=== PATIENT | male | born 1940 | race Caucasian/White ===

== ENCOUNTER → 2018-05-19 | Outpatient (CLI) | payer MEDICARE ==
[2018-05-19 10:10] LABS: HCT 38.3 % (39.0-53.0); HGB 12.4 gm/dL (13.0-17.5); MCH 30.2 pg (25.0-35.0); MCHC 32.4 g/dL (31.0-37.0); MCV 93.2 fL (80.0-100.0); Mean Platelet Volume 6.7; Platelet Count 360 k/uL (150-450); RBC 4.11 m/uL (4.30-5.90); RDW 14.1 % (11.5-15.5); WBC 11.6 k/uL (3.8-10.6)
[2018-05-19 16:24] LABS: Albumin 4.3 g/dL (3.80-4.90); Albumin/Globulin Ratio 1.65 (1.20-2.10); Calcium 9.7 mg/dL (8.7-10.3); Globulin 2.6 g/dL (2.1-3.7); Potassium 4.4 mmol/L (3.5-5.5); Total Bilirubin 0.3 mg/dL (0.3-1.2); Total Protein 6.9 g/dL (6.2-8.2)
== END | disposition home or self-care (01) ==
LOC: LABWHC1 08:35
PROVIDERS: ATTEND Thoracic Surgery (Cardiothoracic Vascular Surgery)
DX: E63.8 Other specified nutritional deficiencies (principal)
CPT/HCPCS: 36415; 80053; 84134; 85027

== ENCOUNTER 2023-09-28 03:42 | Emergency (ER) | payer MEDICARE ==
[2023-09-28 03:57] VITALS: TEMP 99
[2023-09-28] MEDS: SODIUM CHLORIDE 0.9% 1,000 ML IV STA (04:28)
[2023-09-28 04:29] LABS: HCT 45.5 % (39.0-53.0); HGB 14.1 gm/dL (13.0-17.5); Hypochromasia Slight; MCV 96.9 fL (80.0-100.0); Mean Platelet Volume 9.2; Platelet Count 162 k/uL (150-450); RDW 14.2 % (11.5-15.5); WBC 12.5 k/uL (3.8-10.6)
--- NOTE | 2023-09-28 04:50 | XR ---
EXAM: XR Chest, 2 Views CLINICAL HISTORY: ITS.REASON XR Reason: pain TECHNIQUE: Frontal and lateral views of the chest. COMPARISON: 05/03/2018 FINDINGS: Lungs: Unremarkable. No consolidations. Pleural space: Unremarkable. No pneumothorax. Heart: Unremarkable. No cardiomegaly. Mediastinum: Unremarkable. Normal mediastinal contour. Bones/joints: Unremarkable. No acute fracture. IMPRESSION: No acute pulmonary process.
[2023-09-28 05:04] LABS: ALT 12 U/L (4-49); AST 20 U/L (17-59); African American GFR (CKD) >90 (>60 ml/min/1.73 sqM); Albumin 2.3 g/dL (3.5-5.0); Alkaline Phosphatase 61 U/L (38-126); Anion Gap 4 mmol/L; Blood Urea Nitrogen 19 mg/dL (9-20); Carbon Dioxide 17 mmol/L (22-30); Chloride 122 mmol/L (98-107); Glucose 90 mg/dL (74-99); Non-African American GFR(CKD) >90 (>60 ml/min/1.73 sqM); Potassium 3.1 mmol/L (3.5-5.1); Sodium 143 mmol/L (137-145); Total Bilirubin 0.3 mg/dL (0.2-1.3); Total Protein 4.6 g/dL (6.3-8.2)
[2023-09-28] MEDS: ACETAMINOPHEN IV (For NPO) 1,000 MG in EMPTY BAG 1 BAG IVPB STA (05:17)
[2023-09-28 05:18] LABS: Band Neutrophils % 31 %; Eosinophils # (M) 0.13 k/uL (0-0.7); Lymphocytes # (M) 0.38 k/uL (1.0-4.8); Monocytes # (M) 0.63 k/uL (0-1.0); Neutrophils % (M) 60 %; Nucleated Red Blood Cells 0 /100 WBC (0-0); Total Cells Counted 200
[2023-09-28 05:19] LABS: Toxic Granulation Present
[2023-09-28 05:27] LABS: Calcium 5.6 mg/dL (8.4-10.2)
[2023-09-28] MEDS: IPRATROPIUM-ALBUTEROL 3 ML NEB INHALATION STA (05:30)
--- NOTE | 2023-09-28 06:58 | ED ---
Nausea/Vomiting/Diarrhea HPI - General Source: EMS Mode of arrival: EMS <Sammi Quintero - Last Filed: 09/28/23 07:03> <Clement Colby - Last Filed: 09/28/23 10:45> - General Chief complaint: Nausea/Vomiting/Diarrhea Stated complaint: weakness Time Seen by Provider: 09/28/23 03:50 - History of Present Illness Initial comments: 83-year-old male with past medical history of dementia, brain bleed, craniotomy who presents emergency department from [facility]. Patient is sent in by staff for flulike symptoms. They state that the patient has had nausea, vomiting and diarrhea with a cough. Patient cannot provide much history. No reported fevers. (Sammi Quintero) - Related Data Home Medications Medication Instructions Recorded Confirmed QUEtiapine [SEROquel] 1 tab PO HS 03/27/15 09/24/18 Sertraline [Zoloft] 1 tab PO DAILY 03/27/15 09/24/18 Acetaminophen Tab [Tylenol] 650 mg PO Q6HR PRN 05/03/18 09/24/18 Docusate [Colace] 100 mg PO DAILY 05/03/18 09/24/18 Famotidine [Pepcid] 20 mg PO Q12HR 05/03/18 09/24/18 L.acidoph,Paracasei, B.lactis 1 cap PO DAILY 05/03/18 09/24/18 [Probiotic] Loperamide HCl [Imodium A-D] 2 mg PO DIRECTED 05/03/18 09/24/18 Metoprolol Succinate (ER) [Toprol 25 mg PO DAILY 05/03/18 09/24/18 XL] Previous Rx's Medication Instructions Recorded Donepezil [Aricept] 10 mg PO HS #0 05/06/18 Cefpodoxime Proxetil [Vantin] 200 mg PO Q12HR 10 Days #20 tab 09/28/23 Allergies Allergy/AdvReac Type Severity Reaction Status Date / Time No Known Allergies Allergy Verified 09/28/23 03:50 Review of Systems ROS Other: All systems not noted in ROS Statement are negative. <Sammi Quintero - Last Filed: 09/28/23 07:03> ROS Other: All systems not noted in ROS Statement are negative. <Clement Colby - Last Filed: 09/28/23 10:45> ROS Statement: Those systems with pertinent positive or pertinent negative responses have been documented in the HPI. Past Medical History Past Medical History: CVA/TIA, Dementia, Hypertension Additional Past Medical History / Comment(s): brain bleed,head wound History of Any Multi-Drug Resistant Organisms: None Reported Additional Past Surgical History / Comment(s): craniotomy Past Anesthesia/Blood Transfusion Reactions: No Reported Reaction Past Psychological History: Unable to Obtain Past Alcohol Use History: None Reported Past Drug Use History: None Reported - Past Family History Father Family Medical History: CVA/TIA <Sammi Quintero - Last Filed: 09/28/23 07:03> General Exam Limitations: altered mental status, physical limitation General appearance: alert, lethargic Head exam: Present: other (Cranial defect right scalp) Eye exam: Present: PERRL, EOMI, conjunctival injection. Absent: scleral icterus, periorbital swelling ENT exam: Present: mucous membranes dry Neck exam: Present: normal inspection. Absent: tenderness, meningismus, lymphadenopathy Respiratory exam: Present: normal lung sounds bilaterally. Absent: respiratory distress, wheezes, rales, rhonchi, stridor Cardiovascular Exam: Present: regular rate, normal rhythm, normal heart sounds. Absent: systolic murmur, diastolic murmur, rubs, gallop, clicks Extremities exam: Present: normal inspection, full ROM, normal capillary refill. Absent: tenderness, pedal edema, joint swelling, calf tenderness Neurological exam: Present: altered Psychiatric exam: Present: flat affect <Sammi Quintero Oscar - Last Filed: 09/28/23 07:03> Course Vital Signs 09/28/23 09/28/23 09/28/23 03:43 05:22 05:30 Temperature 99.0 F Pulse Rate 79 79 79 Respiratory 16 17 Rate Blood Pressure 125/56 140/70 O2 Sat by Pulse 95 95 Oximetry 09/28/23 09/28/23 09/28/23 05:39 07:23 09:51 Temperature Pulse Rate 82 87 91 Respiratory 18 18 Rate Blood Pressure 126/56 118/52 O2 Sat by Pulse 94 L 95 Oximetry 09/28/23 10:18 Temperature Pulse Rate 74 Respiratory 16 Rate Blood Pressure 109/44 O2 Sat by Pulse 95 Oximetry Medical Decision Making - Lab Data Result diagrams: 09/28/23 04:14 09/28/23 04:30 <IngridSammi Oscar - Last Filed: 09/28/23 07:03> - Lab Data Result diagrams: 09/28/23 04:14 09/28/23 04:30 <LashaClement Jasmina - Last Filed: 09/28/23 10:45> - Medical Decision Making Was pt. sent in by a medical professional or institution (, TAYLA, ROUTE DELIVERY CLERK, urgent care, hospital, or long-term...) When possible be specific @ -[No] Did you speak to anyone other than the patient for history (EMS, parent, family, police, friend...)? What history was obtained from this source @ -[No] Did you review nursing and triage notes (agree or disagree)? Why? @ -[I reviewed and agree with nursing and triage notes] Were old charts reviewed (outside hosp., previous admission, EMS record, old EKG, old radiological studies, urgent care reports/EKG's, long-term records)? Report findings @ -[No old charts were reviewed] Differential Diagnosis (chest pain, altered mental status, abdominal pain women, abdominal pain men, vaginal bleeding, weakness, fever, dyspnea, syncope, headache, dizziness, GI bleed, back pain, seizure, CVA, palpatations, mental health, musculoskeletal)? @ -[not applicable] EKG interpreted by me (3pts min.). @ -[As above] X-rays interpreted by me (1pt min.). @ -[None done] CT interpreted by me (1pt min.). @ -[None done] U/S interpreted by me (1pt. min.). @ -[None done] What testing was considered but not performed or refused? (CT, X-rays, U/S, labs)? Why? @ -[None] What meds were considered but not given or refused? Why? @ -[None] Did you discuss the management of the patient with other professionals (professionals i.e. TAYLA Garvey, ROUTE DELIVERY CLERK, lab, RT, psych nurse, social group worker, headwaiter/headwaitress, teacher, workplace rehabilitation officer, oil field caser)? Give summary @ -[No] Was smoking cessation discussed for >3mins.? @ -[No] Was critical care preformed (if so, how long)? @ -[No] Were there social determinants of health that impacted care today? How? (Homelessness, low income, unemployed, alcoholism, drug addiction, transportation, low edu. Level, literacy, decrease access to med. care, care home, rehab)? @ -[No] Was there de-escalation of care discussed even if they declined (Discuss DNR or withdrawal of care, Hospice)? DNR status @ -[No] What co-morbidities impacted this encounter? (DM, HTN, Smoking, COPD, CAD, Cancer, CVA, ARF, Chemo, Hep., AIDS, mental health diagnosis, sleep apnea, morbid obesity)? @ -[None] Was patient admitted / discharged? Hospital course, mention meds given and route, prescriptions, significant lab abnormalities, going to OR and other pertinent info. @ -Upon arrival patient was placed into room 10. Thorough history and physical exam was performed. IV access was established. Laboratory studies were conducted. Patient given Zofran and Tylenol. CT is performed and pending at this time. Patient will be signed out to Dr. Colby. Undiagnosed new problem with uncertain prognosis? @ -[No] Drug Therapy requiring intensive monitoring for toxicity (Heparin, Nitro, Insulin, Cardizem)? @ -[No] Were any procedures done? @ -[No] Diagnosis/symptom? @ -[default] Acute, or Chronic, or Acute on Chronic? @ -[default] Uncomplicated (without systemic symptoms) or Complicated (systemic symptoms)? @ -[default] Side effects of treatment? @ -[No] Exacerbation, Progression, or Severe Exacerbation? @ -[No] Poses a threat to life or bodily function? How? (Chest pain, USA, VT, pneumonia, PE, COPD, DKA, ARF, appy, cholecystitis, CVA, Diverticulitis, Homicidal, Suicidal, threat to staff... and all critical care pts) @ -[No] (Sammi Quintero) Patient care signed out to me by previous shift physician, Dr. Yeboah. Briefly, patient is 83-year-old male presents from the [facility]. He was brought here to the emergency department for chief complaint of flulike symptoms along with diarrhea. Plan at signout was to follow-up with pending CT imaging. Patient evaluated the bedside. States that he has no significant complaints and feels at baseline. Spoke with the son states that patient sounds to be at baseline. Son did call the snf to figure out what was going on with the patient. Son is currently in [place]. CT imaging was obtained. There was some fluid-filled small bowel loops suspicious for ileus versus gastroenteritis. Patient had some bouts of diarrhea ruling out ileus clinically. There does appear to be a small infiltrate in the posterior lateral right lung base. Son reports that patient has a chronic cough. There does appear to be some thickening at the rectosigmoid junction which is an incidental finding. Disposition options were discussed with patient and son. Patient would like to be discharged. Patient likely suffering from bout of gastroenteritis.Urinalysis obtained showing nitrate positivity with 6 white blood cells and a clean-catch. This is suspicious for urinary tract infection. Patient given dose of ceftriaxone and calcium gluconate. Patient reevaluated again 9:30 AM found to be in stable condition. Disposition options were discussed with patient he wants to be discharged. Patient stable for discharge. Diagnosis/symptom? @ -Gastroenteritis, UTI Acute, or Chronic, or Acute on Chronic? @ -Acute Uncomplicated (without systemic symptoms) or Complicated (systemic symptoms)? @ -Uncomplicated Side effects of treatment? @ -[none] Exacerbation, Progression, or Severe Exacerbation] @ -[no] Poses a threat to life or bodily function? @ -Yes (Clement Colby) - Lab Data Lab Results 09/28/23 09/28/23 09/28/23 Range/Units 04:14 04:14 04:30 WBC 12.5 H (3.8-10.6) k/uL RBC 4.70 (4.30-5.90) m/uL Hgb 14.1 (13.0-17.5) gm/dL Hct 45.5 (39.0-53.0) % MCV 96.9 (80.0-100.0) fL MCH 30.0 (25.0-35.0) pg MCHC 31.0 (31.0-37.0) g/dL RDW 14.2 (11.5-15.5) % Plt Count 162 (150-450) k/uL MPV 9.2 Neutrophils % (Manual) 60 % Band Neuts % (Manual) 31 % Lymphocytes % (Manual) 3 % Monocytes % (Manual) 5 % Eosinophils % (Manual) 1 % Neutrophils # (Manual) 11.30 H (1.3-7.7) k/uL Lymphocytes # (Manual) 0.38 L (1.0-4.8) k/uL Monocytes # (Manual) 0.63 (0-1.0) k/uL Eosinophils # (Manual) 0.13 (0-0.7) k/uL Nucleated RBCs 0 (0-0) /100 WBC Manual Slide Review Performed Toxic Granulation Present Hypochromasia Slight Sodium 143 (137-145) mmol/L Potassium 3.1 L (3.5-5.1) mmol/L Chloride 122 H (98-107) mmol/L Carbon Dioxide 17 L (22-30) mmol/L Anion Gap 4 mmol/L BUN 19 (9-20) mg/dL Creatinine 0.58 L (0.66-1.25) mg/dL Est GFR (CKD-EPI)AfAm >90 (>60 ml/min/1.73 sqM) Est GFR (CKD-EPI)NonAf >90 (>60 ml/min/1.73 sqM) Glucose 90 (74-99) mg/dL Plasma Lactic Acid Emiliano (0.7-2.0) mmol/L Calcium 5.6 L* (8.4-10.2) mg/dL Ionized Calcium Evie (4.5-5.3) mg/dL Total Bilirubin 0.3 (0.2-1.3) mg/dL AST 20 (17-59) U/L ALT 12 (4-49) U/L Alkaline Phosphatase 61 (38-126) U/L Total Protein 4.6 L (6.3-8.2) g/dL Albumin 2.3 L (3.5-5.0) g/dL Urine Color Urine Appearance (Clear) Urine pH (5.0-8.0) Ur Specific [place] (1.001-1.035) Urine Protein (Negative) Urine Glucose (UA) (Negative) Urine Ketones (Negative) Urine Blood (Negative) Urine Nitrite (Negative) Urine Bilirubin (Negative) Urine Urobilinogen (<2.0) mg/dL Ur Leukocyte Esterase (Negative) Urine RBC (0-5) /hpf Urine WBC (0-5) /hpf Ur Squamous Epith Cells (0-4) /hpf Urine Bacteria (None) /hpf Urine Mucus (None) /hpf Influenza Type A (PCR) Not Detected (Not Detectd) Influenza Type B (PCR) Not Detected (Not Detectd) RSV (PCR) Not Detected (Not Detectd) SARS-CoV-2 (PCR) Not Detected (Not Detectd) 09/28/23 09/28/23 09/28/23 Range/Units 06:37 06:37 08:20 WBC (3.8-10.6) k/uL RBC (4.30-5.90) m/uL Hgb (13.0-17.5) gm/dL Hct (39.0-53.0) % MCV (80.0-100.0) fL MCH (25.0-35.0) pg MCHC (31.0-37.0) g/dL RDW (11.5-15.5) % Plt Count (150-450) k/uL MPV Neutrophils % (Manual) % Band Neuts % (Manual) % Lymphocytes % (Manual) % Monocytes % (Manual) % Eosinophils % (Manual) % Neutrophils # (Manual) (1.3-7.7) k/uL Lymphocytes # (Manual) (1.0-4.8) k/uL Monocytes # (Manual) (0-1.0) k/uL Eosinophils # (Manual) (0-0.7) k/uL Nucleated RBCs (0-0) /100 WBC Manual Slide Review Toxic Granulation Hypochromasia Sodium (137-145) mmol/L Potassium (3.5-5.1) mmol/L Chloride (98-107) mmol/L Carbon Dioxide (22-30) mmol/L Anion Gap mmol/L BUN (9-20) mg/dL Creatinine (0.66-1.25) mg/dL Est GFR (CKD-EPI)AfAm (>60 ml/min/1.73 sqM) Est GFR (CKD-EPI)NonAf (>60 ml/min/1.73 sqM) Glucose (74-99) mg/dL Plasma Lactic Acid Emiliano 1.6 (0.7-2.0) mmol/L Calcium (8.4-10.2) mg/dL Ionized Calcium Evie 4.2 L (4.5-5.3) mg/dL Total Bilirubin (0.2-1.3) mg/dL AST (17-59) U/L ALT (4-49) U/L Alkaline Phosphatase (38-126) U/L Total Protein (6.3-8.2) g/dL Albumin (3.5-5.0) g/dL Urine Color Yellow Urine Appearance Clear (Clear) Urine pH 5.5 (5.0-8.0) Ur Specific [place] 1.050 H (1.001-1.035) Urine Protein Trace H (Negative) Urine Glucose (UA) Negative (Negative) Urine Ketones Negative (Negative) Urine Blood Small H (Negative) Urine Nitrite Positive (Negative) Urine Bilirubin Negative (Negative) Urine Urobilinogen <2.0 (<2.0) mg/dL Ur Leukocyte Esterase Small H (Negative) Urine RBC 4 (0-5) /hpf Urine WBC 6 H (0-5) /hpf Ur Squamous Epith Cells 2 (0-4) /hpf Urine Bacteria Moderate H (None) /hpf Urine Mucus Rare H (None) /hpf Influenza Type A (PCR) (Not Detectd) Influenza Type B (PCR) (Not Detectd) RSV (PCR) (Not Detectd) SARS-CoV-2 (PCR) (Not Detectd) Disposition <Sammi Quintero A - Last Filed: 09/28/23 07:03> Is patient prescribed a controlled substance at d/c from ED?: No Time of Disposition: 09:28 <Clement Colby - Last Filed: 09/28/23 10:45> Clinical Impression: UTI (urinary tract infection), Gastroenteritis Disposition: HOME SELF-CARE Condition: Fair Instructions (If sedation given, give patient instructions): Urinary Tract Infection in Men (ED), Acute Diarrhea (ED) Prescriptions: Cefpodoxime Proxetil [Vantin] 200 mg PO Q12HR 10 Days #20 tab Referrals: Mark Harris MD [Primary Care Provider] - 1-2 days
[2023-09-28] MEDS: ONDANSETRON 4 MG/2 ML VIAL IVP STA (07:31)
--- NOTE | 2023-09-28 07:33 | CT ---
EXAMINATION TYPE: CT abdomen pelvis w con DATE OF EXAM: 09/28/2023 COMPARISON: None INDICATION: vomiting DLP: 1522.2 mGycm, Automated exposure control for dose reduction was used. CONTRAST: 100 mL of Isovue 300. Study performed without Oral Contrast TECHNIQUE: Axial images were obtained from above the diaphragm to the pubic rami in the axial plane a t 5 mm thick sections. Reconstructed images are reviewed on the computer in the coronal plane. FINDINGS: Limited CT sections are obtained the lung bases. There is some infiltrate in the posterior right ramon g base, correlate for atelectasis or pneumonia. Coronary artery calcification is present. CT ABDOMEN: Liver: Normal Spleen: Normal Pancreas: Normal Adrenal glands: The adrenal glands are normal. Gallbladder: Cholelithiasis present. Kidneys: No masses are evident. No hydronephrosis is present. There is a 4.3 cm cyst posterior late ral left upper lobe pole. Medial wall cyst is present measuring 1.5 cm. There may be a peripelvic cys t superior measuring 1.5 cm. Smaller cortical renal cysts are within the mid and lower pole left kidn ey. There is a 5.7 cm cyst at the inferior pole right kidney. Small cortical renal cysts are present mid and upper pole right kidney. Delayed images were obtained through the kidneys, which remain unrem arkable. Aorta: Vascular calcification is within the aorta. Inferior vena cava: Normal. CT PELVIS: Small bowel loops are prominent and fluid-filled. There is suggestion of prior bowel surgery. No zone of transition is evident. Correlate for ileus. Fluid is also within the colon which is nondilated. T here may be some thickening through the rectosigmoid region. Follow-up is recommended Appendix: Not identified. No dilated tubular structures or inflammatory changes evident. Urinary bladder: Normal. Genitourinary structures: Status normal. Osseous structures: No suspicious lytic or sclerotic lesions. IMPRESSION: 1. Fluid-filled small bowel loops. No zone of transition is evident. Surgical anastomosis appears wi leesa patent. Ileus favored within the differential. Consider gastroenteritis. 2. Multiple bilateral renal cysts. 3. Small infiltrate posterior lateral right lung base.: Atelectasis and pneumonia. Follow-up can be p erformed. Mass is not excluded. 4. Diffuse thickening through the rectosigmoid region. Follow-up is recommended
[2023-09-28 08:47] LABS: Appearance,Urine Clear (Clear); Bacteria,Urine Moderate /hpf; Bilirubin,Urine Negative (Negative); Blood,Urine Small (Negative); Color,Urine Yellow; Glucose,Urine (UA) Negative (Negative); Ketones,Urine Negative (Negative); Leukocyte Esterase,Urine Small (Negative); Mucus,Urine Rare /hpf; Nitrite,Urine Positive (Negative); PH, Urine 5.5 (5.0-8.0); Protein,Urine Trace (Negative); RBC,Urine 4 /hpf (0-5); Squamous Epithelial Cell,Urine 2 /hpf (0-4); Urobilinogen,Urine <2.0 mg/dL (<2.0); WBC,Urine 6 /hpf (0-5)
[2023-09-28] MEDS: cefTRIAXone IN SWFI 1,000 MG/10 ML SYRINGE IVP STA (09:53)
[2023-09-28] MEDS: CALCIUM GLUCONATE IN NACL 1 GM in SALINE 1 100ML.BAG IVPB ONE (09:55)
[2023-09-28 10:52] VITALS: BP 109/44; PULSE 74; RESP 16
== END 2023-09-28 12:10 | disposition home or self-care (01) ==
LOC: EC 03:42
DX: K52.9 Noninfective gastroenteritis and colitis, unspecified (principal); N39.0 Urinary tract infection, site not specified; R91.8 Other nonspecific abnormal finding of lung field; R05.3 Chronic cough; Z86.73 Personal history of transient ischemic attack (TIA), and cerebral infarction without residual deficits
CPT/HCPCS: 36415; 94640; 80053; 82330; 83605; 85025; 81001; 87636; 71046; 74177; 99285; 96365; 96375 ×3; 96361; J2405; J0696; J0131; Q9967; J0613

== ENCOUNTER 2024-02-04 17:11 | Emergency (ER) | payer MEDICARE ==
[2024-02-04] MEDS ORDERED: PROPARACAINE 0.5% OPHTH DROPS 15 ML BTL ONE (21:06)
[2024-02-04] MEDS ORDERED: FLUORESCEIN STRIPS 1 MG STRIP ONE (21:06)
== END 2024-02-04 23:10 | disposition home or self-care (01) ==
LOC: EC 17:11
DX: H57.89 Other specified disorders of eye and adnexa (principal)
CPT/HCPCS: 99284

== ENCOUNTER 2024-03-23 00:11 | Inpatient (IN) | payer MEDICARE ==
--- NOTE | 2024-03-23 02:08 | CT ---
EXAMINATION TYPE: CT brain audra alegre DATE OF EXAM: 03/23/2024 COMPARISON: CT brain 2018 HISTORY: pt arrives to ED from [facility] for c/o weakness and fall yesterday from chair. pt is febrile and lethargic. pt's family on their way. pt takes Bi[employer] CT DLP: 1547.2 mGycm. Automated Exposure Control for Dose Reduction was Utilized. TECHNIQUE: CT scan of the head and cervical spine are performed without contrast. FINDINGS: Right frontal parietal craniectomy changes redemonstrated. There is no acute intracranial hemorrhage or midline shift identified. Mild/moderate ventricular and sulcal prominence is redemonst rated. Mild/moderate low attenuation in the periventricular white matter is redemonstrated. Bilateral aphakia again seen. The visualized sinuses are clear. Cervical spine is visualized in its entirety from C1 through upper thoracic levels and demonstrates s coliosis without evidence of acute fracture or dislocation. Prevertebral soft tissue appears within normal limits. The C1-C2 articulation is within normal limits on the coronal images. Vertebral body heights are preserved. Disc space heights are fairly well maintained. Lung apices are clear without pneumothorax. IMPRESSION: 1. There is no acute fracture or dislocation evident in the cervical spine. 2. No acute intracranial hemorrhage or midline shift seen. [facility], , 03/23/2024 2:06 AM
--- NOTE | 2024-03-23 02:18 | CT ---
EXAMINATION TYPE: CT ChestAbdPelvis wo con DATE OF EXAM: 03/23/2024 COMPARISON: NONE HISTORY: pt arrives to ED from [facility] for c/o weakness and fall yesterday from chair. pt is febrile and lethargic. pt's family on their way. pt takes eliOnSwipeis CT DLP: 1112.6 mGycm. Automated Exposure Control for Dose Reduction was Utilized. TECHNIQUE: CT scan of the thorax, abdomen and pelvis is performed without IV contrast. FINDINGS: Within the limitations of a noncontrast study, the following observations are made. LUNGS: There is tiny right pleural effusion. There is focal consolidation/atelectasis posterior right lower lobe. Left lung is grossly clear. MEDIASTINUM: Heart size upper limits of normal. Moderate to severe three-vessel coronary artery calci fication. No significant pericardial effusion. LIVER/GB: Small dependent gallstones and/or gallbladder sludge. PANCREAS: No significant abnormality is seen. SPLEEN: No significant abnormality is seen. ADRENALS: No significant abnormality is seen. KIDNEYS: There are a few simple-appearing thin-walled cysts scattered throughout both kidneys. No hyd ronephrosis seen bilaterally. BOWEL: No abnormal small or large bowel dilatation. GENITAL ORGANS: No gross abnormality seen. LYMPH NODES: No greater than 1cm abdominal or pelvic lymph nodes are appreciated. OSSEOUS STRUCTURES: No significant abnormality is seen. OTHER: No significant additional abnormality is seen. IMPRESSION: 1. Tiny right pleural effusion. Focal consolidation/atelectasis posterior right lower lobe. 2. No significant acute finding in the abdomen and pelvis on noncontrast CT. [facility], , 03/23/2024 2:16 AM
[2024-03-23 02:21] LABS: Glucose,Whole Blood 110 mg/dL (70-110)
[2024-03-23] MEDS: cefTRIAXone IN SWFI 1,000 MG/10 ML SYRINGE IVP STA (02:54)
[2024-03-23] MEDS: AZITHROMYCIN 500 MG in SODIUM CHLORIDE 0.9% 250 ML IVPB STA (02:56)
[2024-03-23] MEDS: SODIUM CHLORIDE 0.9% 1,000 ML IV ONE ×2 (02:57→05:59)
[2024-03-23 04:48] LABS: INR 1.2 (<1.2); Partial Thromboplastin Time 25.3 sec (22.0-30.0); Prothrombin Time 12.5 sec (10.0-12.5)
[2024-03-23 04:51] LABS: Basophils % (A) 0 %; Eosinophils % (A) 0 %; HCT 37.3 % (39.0-53.0); HGB 11.9 gm/dL (13.0-17.5); Hypochromasia Slight; Lymphocytes # (A) 0.6 k/uL (1.0-4.8); Lymphocytes % (A) 6 %; MCH 29.7 pg (25.0-35.0); MCHC 31.8 g/dL (31.0-37.0); MCV 93.6 fL (80.0-100.0); Mean Platelet Volume 7.5; Monocytes # (A) 0.7 k/uL (0-1.0); Monocytes % (A) 6 %; Neutrophils # (A) 9.8 k/uL (1.3-7.7); Neutrophils % (A) 87 %; Platelet Count 139 k/uL (150-450); RBC 3.99 m/uL (4.30-5.90); RDW 13.9 % (11.5-15.5); WBC 11.3 k/uL (3.8-10.6)
[2024-03-23 05:04] LABS: ALT 11 U/L (4-49); AST 24 U/L (17-59); African American GFR (CKD) >90 (>60 ml/min/1.73 sqM); Albumin 3.5 g/dL (3.5-5.0); Alcohol <10 mg/dL; Alkaline Phosphatase 85 U/L (38-126); Anion Gap 5 mmol/L; Blood Urea Nitrogen 18 mg/dL (9-20); Calcium 8.3 mg/dL (8.4-10.2); Carbon Dioxide 22 mmol/L (22-30); Chloride 111 mmol/L (98-107); Glucose 94 mg/dL (74-99); Non-African American GFR(CKD) 79 (>60 ml/min/1.73 sqM); Potassium 4.1 mmol/L (3.5-5.1); Sodium 138 mmol/L (137-145); Total Bilirubin 0.9 mg/dL (0.2-1.3); Total Protein 6.1 g/dL (6.3-8.2)
--- NOTE | 2024-03-23 05:32 | ED ---
General Adult HPI - General Chief complaint: Fall Stated complaint: Fall (Blood Thinners) Time Seen by Provider: 03/23/24 00:46 Source: EMS Mode of arrival: EMS - History of Present Illness Initial comments: Hx limited by patient's dementia. Per EMS report, patient resides at independent living. Suffered a fall yesterday and refused to come to the ED. Today pt began complaining of knee pain so was brought to the ED. Upon further hx gathering from patient's son, confirmed history as above. Patient is currently at baseline mental stauts, AO x2. - Related Data Home Medications Medication Instructions Recorded Confirmed QUEtiapine [SEROquel] 50 mg PO W/SUPPER 03/27/15 03/23/24 Famotidine [Pepcid] 20 mg PO QAM 05/03/18 03/23/24 Metoprolol Succinate (ER) [Toprol 25 mg PO DAILY 05/03/18 03/23/24 XL] Cyanocobalamin (Vitamin B-12) 1,000 mcg PO DAILY 03/23/24 03/23/24 [Vitamin B-12] Levothyroxine Sodium [Synthroid] 25 mcg PO QAM 03/23/24 03/23/24 Rosuvastatin [Crestor] 10 mg PO HS 03/23/24 03/23/24 Sertraline [Zoloft] 100 mg PO DAILY 03/23/24 03/23/24 Previous Rx's Medication Instructions Recorded Acetaminophen Tab [Tylenol] 650 mg PO Q6HR PRN tab 03/26/24 Carbidopa-Levodopa 25-100 mg 1 each PO TID tab 03/26/24 [Sinemet 25-100 mg] Cefuroxime [Ceftin] 250 mg PO BID 3 Days #6 tab 03/26/24 Psyllium Husk 100% [Metamucil 6 gm PO DAILY packet 03/26/24 Packet] bisacodyL [Dulcolax] 5 mg PO DAILY PRN tab 03/26/24 Allergies Allergy/AdvReac Type Severity Reaction Status Date / Time No Known Allergies Allergy Verified 03/23/24 07:44 Review of Systems ROS Statement: Those systems with pertinent positive or pertinent negative responses have been documented in the HPI. ROS Other: All systems not noted in ROS Statement are negative. Limitations: ROS unobtainable due to patients medical condition Past Medical History Past Medical History: CVA/TIA, Dementia, Hypertension Additional Past Medical History / Comment(s): brain bleed,head wound History of Any Multi-Drug Resistant Organisms: None Reported Additional Past Surgical History / Comment(s): craniotomy Past Anesthesia/Blood Transfusion Reactions: No Reported Reaction Past Psychological History: Unable to Obtain Past Alcohol Use History: None Reported Past Drug Use History: None Reported - Past Family History Father Family Medical History: CVA/TIA General Exam - General Exam Comments Initial Comments: PE: CONSTITUTIONAL: No apparent distress, chronically ill appearing SKIN: Warm, dry, no jaundice, hives or petechiae EYES: Pupils are equally round, extraocular movements intact without nystagmus, clear conjunctiva, non-icteric sclera HENT: Normocephalic, small 1 cm abrasion to posterior occiput, dry mucus membranes, oropharynx clear without exudates NECK: , Full range of motion, normal appearance PULMONARY: Clear to auscultation without wheezes, rhonchi, or rales, normal excursion, no accessory muscle use and no stridor CARDIOVASCULAR: Regular rate, rhythm, normal S1 and S2. No appreciated murmurs, rubs or gallops. Strong radial pulses with intact distal perfusion. No lower extremity edema GASTROINTESTINAL: Soft, active bowel sounds throughout, non-tender, non- distended, no palpable masses, no rebound or guarding. No hepatosplenomegaly MUSCULOSKELETAL: Extremities have no gross deformity, no edema, redness, or swelling. No calf swelling NEUROLOGIC:_a/o x 2, GCS 13, somewhat confused, mentation and speech, does an swer some yes or no questions, knows self, and that he is in the hospital, denies complaints of pain when asked. Moves all extremities x 4 without motor or sensory deficit PSYCHIATRIC:_calm and coopreative, difficult to assess further 2/2 hx of 2/2 hx parkinson's and dementia Course Vital Signs 03/23/24 03/23/24 03/23/24 00:22 03:00 04:00 Temperature 98.4 F Pulse Rate 64 67 68 Respiratory 16 16 18 Rate Blood Pressure 107/47 102/61 102/59 O2 Sat by Pulse 98 99 97 Oximetry 03/23/24 03/23/24 03/23/24 05:00 05:30 06:00 Temperature Pulse Rate 60 58 L 60 Respiratory 16 16 18 Rate Blood Pressure 92/40 97/41 100/42 O2 Sat by Pulse 97 98 98 Oximetry 03/23/24 03/23/24 03/23/24 07:38 08:30 08:45 Temperature 97.9 F Pulse Rate 66 60 Respiratory 18 18 Rate Blood Pressure 97/50 80/63 O2 Sat by Pulse 95 96 98 Oximetry 03/23/24 09:12 Temperature Pulse Rate 60 Respiratory 16 Rate Blood Pressure 103/59 O2 Sat by Pulse 99 Oximetry EKG Findings - EKG Comments: EKG Findings:: Paced atrial rhythm, rate 68 bpm, [place] interval 180 ms, QRS duration 91 ms, QT/QTc 409/427 ms, normal axis, no ST elevations or depressions, artifact present throughout Medical Decision Making - Medical Decision Making Was pt. sent in by a medical professional or institution (, PA, INVENTORY SPECIALIST, urgent care, hospital, or residential...) When possible be specific @ -No Did you speak to anyone other than the patient for history (EMS, parent, family, police, friend...)? What history was obtained from this source @ Spoke with patient's son for additional hx Did you review nursing and triage notes (agree or disagree)? Why? @ -I reviewed and agree with nursing and triage notes Were old charts reviewed (outside hosp., previous admission, EMS record, old EKG, old radiological studies, urgent care reports/EKG's, residential records)? Report findings @ Old charts reviewed Differential Diagnosis (chest pain, altered mental status, abdominal pain women, abdominal pain men, vaginal bleeding, weakness, fever, dyspnea, syncope, headache, dizziness, GI bleed, back pain, seizure, CVA, palpatations, mental health, musculoskeletal)? @ -Differential diagnosis remains broad however top considerations include fall/ weakness 2/2 deconditioning, fracture, anemia, electrolyte abnormality, ACS; this is not all inclusive list EKG interpreted by me (3pts min.). @ -As above X-rays interpreted by me (1pt min.). @ No evidence of fracture or dislocation on XR RLE CT interpreted by me (1pt min.). @ -NO evidence of hemorrhage on CT brain, no malalignment or fracture on C spine, no evidence of hemorrhage or fracture on CT chest abdomen pelvis U/S interpreted by me (1pt. min.). @ -None done What testing was considered but not performed or refused? (CT, X-rays, U/S, labs)? Why? @ -None What meds were considered but not given or refused? Why? @ -None Did you discuss the management of the patient with other professionals (professionals i.e. , PA, INVENTORY SPECIALIST, lab, RT, psych nurse, social media content specialist, project superintendent, teacher, marketing officer, ed case manager)? Give summary @ -No Was smoking cessation discussed for >3mins.? @ -No Was critical care preformed (if so, how long)? @ -No Were there social determinants of health that impacted care today? How? (Homelessness, low income, unemployed, alcoholism, drug addiction, transportation, low edu. Level, literacy, decrease access to med. care, alf, rehab)? @ -No Was there de-escalation of care discussed even if they declined (Discuss DNR or withdrawal of care, Hospice)? @ -No What co-morbidities impacted this encounter? (DM, HTN, Smoking, COPD, CAD, Cancer, CVA, ARF, Chemo, Hep., AIDS, mental health diagnosis, sleep apnea, morbid obesity)? @ Dementia, HTN parkinsons Was patient admitted / discharged? Hospital course, mention meds given and route, prescriptions, significant lab abnormalities, going to OR and other pert inent info. @ -Hospital course admission Pt is an 84 y/o male, PMH Dementia, HTN, parkinsons, prior CVA presenting for evaluation post fall. Hx is limited as patient unable to provide hx and no famil y accompanies patient. Pt denies any pain currently and on my assessment, is ill appearing but in NAD. MM dry, small laceration at the posterior left occiput, no midline C spine TTP, extremities are atraumatic, no TTP of any of the extremities., no signs of trauma to the chest wall or abdomen. Patient able to move all 4 extremities through full ROM. LCTAB, soft and nontender abdomen, normal S1/2 on cardiac exam. Pt knows he is in the hospital and is oriented to self. Plan for Ct brain/ Cspine, C/A/P to ensure no signs blunt trauma and assess for potential signs of infection that would explain weakness as patient was reported to be febrile at transferring facility, though afebrile here. Comp rehensive labs, IV fluids. I was able to discuss with patient's son further hx. He states pt fell 2 days ago at his independent living facility. He was able to call for help and caregiver's got him up off of the floor. This evening he was unable to stand, even with assistance, and complained of right knee pain. Pt's facility is unable to provide lift assists/ care for patient if he needs assistance with ambulation. Son states patient is at his mental baseline, states that he does have dementia and he is "very difficult to communicate with" and it is normal for him to only be oriented to self and place. Pt's son states that he himself is sick with influenza and visited the patient a few days ago. On reassessment, I did reexamine patient's right knee. It is nontender to palpation, no bruising or gross deformity, however will add on plain films of the affected extremity. Anticipate admission for placement as, per patient's son patient's current facility is unable to care for him based on his current mobility issues. Labs and imaging reviewed. Significant for white blood cell count 11.3, patient was previously here on 9 on 09/28/2023 and it was 12.5, hemoglobin 11.9, although this is down about 2.2 points from prior on 09/28/2023 I see no evidence of of active bleeding on my assessment or on imaging, Labs and imaging reviewed. Grossly within normal limits. Abnormal values not concerning for acute pathology related to presenting complaint., Significant for white blood cell count 11.3, patient was previously here on 9 on 09/28/2023 and it was 12.5 hemoglobin 11.9, although this is down about 2.2 points from prior on 09/28/2023 no new so I see no evidence of of active bleeding on my assessment on imaging. lactic 0.9. Troponin within normal limit 0.013; urinalysis significant for trace protein, 1+ ketones, small amount of blood large leukocyte esterase 20 white blood cell, WBC clumps, less than 1 squamous cell, rare bacteria few budding yeast. CT abdomen pelvis significant for tiny right pleural effusion with a focus of consolidation or atelectasis in the posterior right lower lobe otherwise no significant acute findings. Patient on home oxygen and afebrile here, however does have leukocytosis. Rocephin and azithromycin has been ordered. I did personally review plain films and see no evidence of fracture. Discussed case with Dr. Hester, [facility] physicians, who kindly accepts patient for admission. Pt admitted in stable condition. Undiagnosed new problem with uncertain prognosis? @ -No Drug Therapy requiring intensive monitoring for toxicity (Heparin, Nitro, Insulin, Cardizem)? @ -No Were any procedures done? @ -No Diagnosis/symptom? @ Generalized weakness, multiple falls, pneumonia, urinary tract infection Acute, or Chronic, or Acute on Chronic? @ Acute Uncomplicated (without systemic symptoms) or Complicated (systemic symptoms)? @complicated Side effects of treatment? @ -No Exacerbation, Progression, or Severe Exacerbation? @ -No Poses a threat to life or bodily function? How? (Chest pain, USA, AR, pneumonia, PE, COPD, DKA, ARF, appy, cholecystitis, CVA, Diverticulitis, Homicidal, Suicidal, threat to staff... and all critical care pts) @Potentially, if left untreated could lead to sepsis and septic shock - Lab Data Result diagrams: 03/26/24 05:20 03/26/24 05:20 Lab Results 03/23/24 03/23/24 03/23/24 Range/Units 02:13 04:15 04:15 WBC 11.3 H (3.8-10.6) k/uL RBC 3.99 L (4.30-5.90) m/uL Hgb 11.9 L (13.0-17.5) gm/dL Hct 37.3 L (39.0-53.0) % MCV 93.6 (80.0-100.0) fL MCH 29.7 (25.0-35.0) pg MCHC 31.8 (31.0-37.0) g/dL RDW 13.9 (11.5-15.5) % Plt Count 139 L (150-450) k/uL MPV 7.5 Neutrophils % 87 % Lymphocytes % 6 % Monocytes % 6 % Eosinophils % 0 % Basophils % 0 % Neutrophils # 9.8 H (1.3-7.7) k/uL Lymphocytes # 0.6 L (1.0-4.8) k/uL Monocytes # 0.7 (0-1.0) k/uL Eosinophils # 0.0 (0-0.7) k/uL Basophils # 0.0 (0-0.2) k/uL Hypochromasia Slight PT 12.5 (10.0-12.5) sec INR 1.2 H (<1.2) APTT 25.3 (22.0-30.0) sec Sodium (137-145) mmol/L Potassium (3.5-5.1) mmol/L Chloride (98-107) mmol/L Carbon Dioxide (22-30) mmol/L Anion Gap mmol/L BUN (9-20) mg/dL Creatinine (0.66-1.25) mg/dL Est GFR (CKD-EPI)AfAm (>60 ml/min/1.73 sqM) Est GFR (CKD-EPI)NonAf (>60 ml/min/1.73 sqM) Glucose (74-99) mg/dL POC Glucose (mg/dL) 110 (70-110) mg/dL POC Glu Program Director/Traffic Director ID Boswell, Jenae Plasma Lactic Acid Emiliano (0.7-2.0) mmol/L Calcium (8.4-10.2) mg/dL Total Bilirubin (0.2-1.3) mg/dL AST (17-59) U/L ALT (4-49) U/L Alkaline Phosphatase (38-126) U/L Ammonia (<30) umol/L Troponin I (0.000-0.034) ng/mL Total Protein (6.3-8.2) g/dL Albumin (3.5-5.0) g/dL TSH (0.465-4.680) mIU/L Urine Color Urine Appearance (Clear) Urine pH (5.0-8.0) Ur Specific Egan (1.001-1.035) Urine Protein (Negative) Urine Glucose (UA) (Negative) Urine Ketones (Negative) Urine Blood (Negative) Urine Nitrite (Negative) Urine Bilirubin (Negative) Urine Urobilinogen (<2.0) mg/dL Ur Leukocyte Esterase (Negative) Urine RBC (0-5) /hpf Urine WBC (0-5) /hpf Urine WBC Clumps (None) /hpf Ur Squamous Epith Cells (0-4) /hpf Urine Bacteria (None) /hpf Urine Yeast (Budding) (None) /hpf Serum Alcohol mg/dL Influenza Type A (PCR) (Not Detectd) Influenza Type B (PCR) (Not Detectd) RSV (PCR) (Not Detectd) SARS-CoV-2 (PCR) (Not Detectd) 03/23/24 03/23/24 03/23/24 Range/Units 04:15 04:15 04:15 WBC (3.8-10.6) k/uL RBC (4.30-5.90) m/uL Hgb (13.0-17.5) gm/dL Hct (39.0-53.0) % MCV (80.0-100.0) fL MCH (25.0-35.0) pg MCHC (31.0-37.0) g/dL RDW (11.5-15.5) % Plt Count (150-450) k/uL MPV Neutrophils % % Lymphocytes % % Monocytes % % Eosinophils % % Basophils % % Neutrophils # (1.3-7.7) k/uL Lymphocytes # (1.0-4.8) k/uL Monocytes # (0-1.0) k/uL Eosinophils # (0-0.7) k/uL Basophils # (0-0.2) k/uL Hypochromasia PT (10.0-12.5) sec INR (<1.2) APTT (22.0-30.0) sec Sodium 138 (137-145) mmol/L Potassium 4.1 (3.5-5.1) mmol/L Chloride 111 H (98-107) mmol/L Carbon Dioxide 22 (22-30) mmol/L Anion Gap 5 mmol/L BUN 18 (9-20) mg/dL Creatinine 0.84 (0.66-1.25) mg/dL Est GFR (CKD-EPI)AfAm >90 (>60 ml/min/1.73 sqM) Est GFR (CKD-EPI)NonAf 79 (>60 ml/min/1.73 sqM) Glucose 94 (74-99) mg/dL POC Glucose (mg/dL) (70-110) mg/dL POC Glu Program Director/Traffic Director ID Plasma Lactic Acid Emiliano 0.9 (0.7-2.0) mmol/L Calcium 8.3 L (8.4-10.2) mg/dL Total Bilirubin 0.9 (0.2-1.3) mg/dL AST 24 (17-59) U/L ALT 11 (4-49) U/L Alkaline Phosphatase 85 (38-126) U/L Ammonia <9 (<30) umol/L Troponin I 0.013 (0.000-0.034) ng/mL Total Protein 6.1 L (6.3-8.2) g/dL Albumin 3.5 (3.5-5.0) g/dL TSH 3.220 (0.465-4.680) mIU/L Urine Color Urine Appearance (Clear) Urine pH (5.0-8.0) Ur Specific Egan (1.001-1.035) Urine Protein (Negative) Urine Glucose (UA) (Negative) Urine Ketones (Negative) Urine Blood (Negative) Urine Nitrite (Negative) Urine Bilirubin (Negative) Urine Urobilinogen (<2.0) mg/dL Ur Leukocyte Esterase (Negative) Urine RBC (0-5) /hpf Urine WBC (0-5) /hpf Urine WBC Clumps (None) /hpf Ur Squamous Epith Cells (0-4) /hpf Urine Bacteria (None) /hpf Urine Yeast (Budding) (None) /hpf Serum Alcohol <10 mg/dL Influenza Type A (PCR) (Not Detectd) Influenza Type B (PCR) (Not Detectd) RSV (PCR) (Not Detectd) SARS-CoV-2 (PCR) (Not Detectd) 03/23/24 03/23/24 Range/Units 05:55 06:14 WBC (3.8-10.6) k/uL RBC (4.30-5.90) m/uL Hgb (13.0-17.5) gm/dL Hct (39.0-53.0) % MCV (80.0-100.0) fL MCH (25.0-35.0) pg MCHC (31.0-37.0) g/dL RDW (11.5-15.5) % Plt Count (150-450) k/uL MPV Neutrophils % % Lymphocytes % % Monocytes % % Eosinophils % % Basophils % % Neutrophils # (1.3-7.7) k/uL Lymphocytes # (1.0-4.8) k/uL Monocytes # (0-1.0) k/uL Eosinophils # (0-0.7) k/uL Basophils # (0-0.2) k/uL Hypochromasia PT (10.0-12.5) sec INR (<1.2) APTT (22.0-30.0) sec Sodium (137-145) mmol/L Potassium (3.5-5.1) mmol/L Chloride (98-107) mmol/L Carbon Dioxide (22-30) mmol/L Anion Gap mmol/L BUN (9-20) mg/dL Creatinine (0.66-1.25) mg/dL Est GFR (CKD-EPI)AfAm (>60 ml/min/1.73 sqM) Est GFR (CKD-EPI)NonAf (>60 ml/min/1.73 sqM) Glucose (74-99) mg/dL POC Glucose (mg/dL) (70-110) mg/dL POC Glu Program Director/Traffic Director ID Plasma Lactic Acid Emiliano (0.7-2.0) mmol/L Calcium (8.4-10.2) mg/dL Total Bilirubin (0.2-1.3) mg/dL AST (17-59) U/L ALT (4-49) U/L Alkaline Phosphatase (38-126) U/L Ammonia (<30) umol/L Troponin I (0.000-0.034) ng/mL Total Protein (6.3-8.2) g/dL Albumin (3.5-5.0) g/dL TSH (0.465-4.680) mIU/L Urine Color Colorless Urine Appearance Cloudy (Clear) Urine pH 7.5 (5.0-8.0) Ur Specific Egan 1.014 (1.001-1.035) Urine Protein Trace H (Negative) Urine Glucose (UA) Negative (Negative) Urine Ketones 1+ H (Negative) Urine Blood Small H (Negative) Urine Nitrite Negative (Negative) Urine Bilirubin Negative (Negative) Urine Urobilinogen <2.0 (<2.0) mg/dL Ur Leukocyte Esterase Large H (Negative) Urine RBC 1 (0-5) /hpf Urine WBC 20 H (0-5) /hpf Urine WBC Clumps Rare H (None) /hpf Ur Squamous Epith Cells <1 (0-4) /hpf Urine Bacteria Rare H (None) /hpf Urine Yeast (Budding) Few H (None) /hpf Serum Alcohol mg/dL Influenza Type A (PCR) Not Detected (Not Detectd) Influenza Type B (PCR) Not Detected (Not Detectd) RSV (PCR) Not Detected (Not Detectd) SARS-CoV-2 (PCR) Not Detected (Not Detectd) Disposition Clinical Impression: Fall, UTI (urinary tract infection), Generalized weakness, Pneumonia Disposition: ADMITTED IP TO THIS HOSP
[2024-03-23 05:40] LABS: Lactic Acid, Venous 0.9 mmol/L (0.7-2.0)
[2024-03-23 06:14] LABS: Appearance,Urine Cloudy (Clear); Bacteria,Urine Rare /hpf; Bilirubin,Urine Negative (Negative); Blood,Urine Small (Negative); Budding Yeast,Urine Few /hpf; Color,Urine Colorless; Glucose,Urine (UA) Negative (Negative); Ketones,Urine 1+ (Negative); Leukocyte Esterase,Urine Large (Negative); Nitrite,Urine Negative (Negative); PH, Urine 7.5 (5.0-8.0); Protein,Urine Trace (Negative); RBC,Urine 1 /hpf (0-5); Specific Gravity,Urine 1.014 (1.001-1.035); Squamous Epithelial Cell,Urine <1 /hpf (0-4); Urobilinogen,Urine <2.0 mg/dL (<2.0); WBC,Urine 20 /hpf (0-5)
--- NOTE | 2024-03-23 06:27 | XR ---
EXAMINATION TYPE: XR femur RT, XR tibia fibula RT DATE OF EXAM: 03/23/2024 CLINICAL HISTORY: Fall with pain TECHNIQUE: Two views of the right femur and leg are obtained. COMPARISON: None FINDINGS: Osseous structures are demineralized. Genu varum positioning of the knee is seen. 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 No acute displaced fracture in the right femur. No acute displaced fracture of the right tibia or fibula. Distal arterial vascula r calcification incidentally noted. IMPRESSION: There is no acute fracture or dislocation in the right femur or leg. [facility], , 03/23/2024 6:24 AM
[2024-03-23] MEDS ORDERED: bisacodyL 5 MG TABLET.DR PO PRN (07:20)
[2024-03-23] MEDS ORDERED: NALOXONE 0.4 MG/ML 1 ML VIAL IV PRN (07:20)
[2024-03-23] MEDS: METOPROLOL SUCCINATE (ER) 25 MG TAB.ER.24H PO SCH (09:14)
[2024-03-23] MEDS: APIXABAN 5 MG TAB PO SCH (09:14)
[2024-03-23] MEDS: PANTOPRAZOLE 40 MG/10 ML VIAL IV SCH (09:14)
[2024-03-23] MEDS: ACETAMINOPHEN TAB 325 MG TAB PO PRN (09:21)
[2024-03-23] MEDS: SODIUM CHLORIDE 0.9% 1,000 ML IV SCH (10:43)
--- NOTE | 2024-03-23 18:28 | P.HPIM ---
History of Present Illness H&P Date: 03/23/24 History of present illness; Rodriguez Tovar 84-year-old male with history of stroke, and dementia presents with syncope. Patient was unable to provide his own history due to dementia. Family states that over last 2 days patient's family reports 2 known falls. During these episodes patient was trying to move from walker and lost balance and fell to the ground hitting the back of his head. Last incident occurred last night when patient fell to his knees. Patient has no known history of seizures, and per family did not display jerking-like symptoms or incontinence. He has no known history of arrhythmia. Patient does state that he has continuous knee pain, no other complaints at this time. Initial lab work done in the ER showed WBC 11.3, hemoglobin 11.9, platelets 139, INR 1.2, sodium 138, potassium 4.1, chloride 111, carbon dioxide 22, BUN 18, creatinine 0.84, urine analysis with 1+ ketones small amount of blood, large leukocyte Estrace, urine WBC with no squamous epithelial cells. EKG done in the ER showed heart rate of 68, no ST segment elevation or depression seen, no T-wave inversions seen. CT head done showed no acute intracranial process CTA head and neck done showed no significant stenosis, aneurysm or thrombus in the intracranial circulation Patient admitted to internal medicine service REVIEW OF SYSTEMS: As per HPI, unable to fully assess due to dementia. The rest of the 14-point review of systems is negative. PHYSICAL EXAMINATION: GENERAL: The patient is alert and oriented x1, not in any acute distress. Well developed, well nourished. HEENT: Pupils are round and equally reacting to light. EOMI. No scleral icterus. No conjunctival pallor. Patient with history of craniotomy of right skull, atraumatic. No pharyngeal erythema. No thyromegaly. CARDIOVASCULAR: S1 and S2 present. No murmurs, rubs, or gallops. PULMONARY: Chest is clear to auscultation, no wheezing or crackles. ABDOMEN: Soft, nontender, nondistended, normoactive bowel sounds. No palpable organomegaly. MUSCULOSKELETAL: No joint swelling or deformity. EXTREMITIES: No cyanosis, clubbing, or pedal edema. NEUROLOGICAL: Gross neurological examination did not reveal any focal deficits. SKIN: No rashes. Assessment and plan # Syncope #Hypovolemia Continue IV normal saline as above Monitor BMP Orthostatics ordered #Urinary tract infection - Patient has suprapubic tenderness and bacteriuria Start Rocephin, day 1 Monitor CBC IV normal saline Pending urine culture Chronic Medical Conditions Continue home meds Monitor vital signs Labs and medication were reviewed.. Continue with symptomatic treatment. Resume home medication. Monitor labs and vitals. DVT and GI prophylaxis. Further recommendations as per clinical course of the patient Dictation was produced using [employer] dictation software. please excuse any grammatical, word or spelling errors. I saw and evaluated the patient during the butts and critical portions of this encounter, and discussed the case in detail with the resident author of this note, I agree with the Assessment and Plan, and my changes, if any, are high lighted in blue. Past Medical History Past Medical History: CVA/TIA, Dementia, Hypertension Additional Past Medical History / Comment(s): brain bleed,head wound History of Any Multi-Drug Resistant Organisms: None Reported Additional Past Surgical History / Comment(s): craniotomy Past Anesthesia/Blood Transfusion Reactions: No Reported Reaction Past Psychological History: Unable to Obtain Past Alcohol Use History: None Reported Past Drug Use History: None Reported - Past Family History Father Family Medical History: CVA/TIA Medications and Allergies Home Medications Medication Instructions Recorded Confirmed Type QUEtiapine [SEROquel] 50 mg PO W/SUPPER 03/27/15 03/23/24 History Docusate [Colace] 100 mg PO BID 05/03/18 03/23/24 History Famotidine [Pepcid] 20 mg PO QAM 05/03/18 03/23/24 History Metoprolol Succinate (ER) [Toprol 25 mg PO DAILY 05/03/18 03/23/24 History XL] Donepezil [Aricept] 10 mg PO HS #0 05/06/18 03/23/24 Rx Apixaban [Eliquis] 5 mg PO BID 03/23/24 03/23/24 History Cyanocobalamin (Vitamin B-12) 1,000 mcg PO DAILY 03/23/24 03/23/24 History [Vitamin B-12] Levothyroxine Sodium [Synthroid] 25 mcg PO QAM 03/23/24 03/23/24 History Rosuvastatin [Crestor] 10 mg PO HS 03/23/24 03/23/24 History Sertraline [Zoloft] 100 mg PO DAILY 03/23/24 03/23/24 History Allergies Allergy/AdvReac Type Severity Reaction Status Date / Time No Known Allergies Allergy Verified 03/23/24 07:44 Physical Exam Osteopathic Statement: *. No significant issues noted on an osteopathic structural exam other than those noted in the History and Physical/Consult. Vitals: Vital Signs Temp Pulse Pulse Resp BP BP Pulse Ox 03/23/24 18:07 99.3 F 71 15 113/62 96 03/23/24 15:28 97.8 F 62 18 108/61 96 03/23/24 09:12 60 16 103/59 99 03/23/24 08:45 60 18 80/63 98 03/23/24 08:30 96 03/23/24 07:38 97.9 F 66 18 97/50 95 03/23/24 06:00 60 18 100/42 98 03/23/24 05:30 58 L 16 97/41 98 03/23/24 05:00 60 16 92/40 97 03/23/24 04:00 68 18 102/59 97 03/23/24 03:00 67 16 102/61 99 03/23/24 00:22 98.4 F 64 16 107/47 98 Intake and Output 03/23/24 03/23/24 03/23/24 06:59 14:59 22:59 Other: Weight 77.111 kg Results CBC & Chem 7: 03/23/24 04:15 03/23/24 04:15 Labs: Abnormal Lab Results - Last 24 Hours (Table) 03/23/24 03/23/24 03/23/24 Range/Units 04:15 04:15 04:15 WBC 11.3 H (3.8-10.6) k/uL RBC 3.99 L (4.30-5.90) m/uL Hgb 11.9 L (13.0-17.5) gm/dL Hct 37.3 L (39.0-53.0) % Plt Count 139 L (150-450) k/uL Neutrophils # 9.8 H (1.3-7.7) k/uL Lymphocytes # 0.6 L (1.0-4.8) k/uL INR 1.2 H (<1.2) Chloride 111 H (98-107) mmol/L Calcium 8.3 L (8.4-10.2) mg/dL Total Protein 6.1 L (6.3-8.2) g/dL Urine Protein (Negative) Urine Ketones (Negative) Urine Blood (Negative) Ur Leukocyte Esterase (Negative) Urine WBC (0-5) /hpf Urine WBC Clumps (None) /hpf Urine Bacteria (None) /hpf Urine Yeast (Budding) (None) /hpf 03/23/24 Range/Units 05:55 WBC (3.8-10.6) k/uL RBC (4.30-5.90) m/uL Hgb (13.0-17.5) gm/dL Hct (39.0-53.0) % Plt Count (150-450) k/uL Neutrophils # (1.3-7.7) k/uL Lymphocytes # (1.0-4.8) k/uL INR (<1.2) Chloride (98-107) mmol/L Calcium (8.4-10.2) mg/dL Total Protein (6.3-8.2) g/dL Urine Protein Trace H (Negative) Urine Ketones 1+ H (Negative) Urine Blood Small H (Negative) Ur Leukocyte Esterase Large H (Negative) Urine WBC 20 H (0-5) /hpf Urine WBC Clumps Rare H (None) /hpf Urine Bacteria Rare H (None) /hpf Urine Yeast (Budding) Few H (None) /hpf
[2024-03-23] MEDS: DOCUSATE 100 MG CAP PO SCH (20:03)
[2024-03-23] MEDS: QUEtiapine 50 MG TAB PO SCH (20:03)
[2024-03-23] MEDS: DONEPEZIL 10 MG TAB PO SCH (20:04)
[2024-03-23] MEDS: ATORVASTATIN 20 MG TAB PO SCH (20:04)
[2024-03-24] MEDS: LEVOTHYROXINE 25 MCG TAB PO SCH (05:21)
[2024-03-24] MEDS: CYANOCOBALAMIN 500 MCG TAB PO SCH (08:24)
[2024-03-24] MEDS: FAMOTIDINE 20 MG TAB PO SCH (08:24)
[2024-03-24] MEDS: SERTRALINE 100 MG TAB PO SCH (08:24)
[2024-03-24 09:12] LABS: BUN/Creat Ratio 13.33 Ratio (12.00-20.00); Calcium 8.2 mg/dL (8.7-10.3); Chloride 107 mmol/L (96-109); Glucose 63 mg/dL (70-110); Potassium 4.3 mmol/L (3.5-5.5); Sodium 141 mmol/L (135-145)
[2024-03-24 09:24] LABS: Basophils # (A) 0.07 X 10*3/uL (0.00-0.10); Basophils % (A) 0.6 %; Eosinophils % (A) 0.8 %; HCT 38.1 % (39.6-50.0); HGB 11.8 g/dL (13.0-17.0); Lymphocytes # (A) 0.74 X 10*3/uL (0.90-5.00); MCH 30.1 pg (27.0-32.0); MCV 97.2 FL (80.0-97.0); Monocytes # (A) 1.03 X 10*3/uL (0.20-1.00); Monocytes % (A) 8.3 %; NRBC Per 100 WBC 0 X 10*3/uL (0.00-0.01); Neutrophils # (A) 10.42 X 10*3/uL (1.80-7.70); Platelet Count 125 X 10*3/uL (140-440); RBC 3.92 X 10*6/uL (4.40-5.60); RDW 14.4 % (11.5-14.5)
[2024-03-24 10:08] LABS: Creatine Kinase 1592 U/L (35-257)
[2024-03-24 15:05] VITALS: BMI 25.1
[2024-03-24 17:00] LABS: Glucose,Whole Blood 88 mg/dL (70-110)
--- NOTE | 2024-03-24 17:40 | P.PN ---
Subjective Progress Note Date: 03/24/24 Rodriguez Tovar 84-year-old male with history of stroke, and dementia presents with syncope. Patient was unable to provide his own history due to dementia. Family states that over last 2 days patient's family reports 2 known falls. During these episodes patient was trying to move from walker and lost balance and fell to the ground hitting the back of his head. Last incident occurred last night when patient fell to his knees. Patient has no known history of seizures, and per family did not display jerking-like symptoms or incontinence. He has no known history of arrhythmia. Patient does state that he has continuous knee pain, no other complaints at this time. Initial lab work done in the ER showed WBC 11.3, hemoglobin 11.9, platelets 139, INR 1.2, sodium 138, potassium 4.1, chloride 111, carbon dioxide 22, BUN 18, creatinine 0.84, urine analysis with 1+ ketones small amount of blood, large leukocyte Estrace, urine WBC with no squamous epithelial cells. EKG done in the ER showed heart rate of 68, no ST segment elevation or depression seen, no T-wave inversions seen. CT head done showed no acute intracranial process CTA head and neck done showed no significant stenosis, aneurysm or thrombus in the intracranial circulation Progress note03/24/2024no events overnight, patient remains afebrile, continues to make urine. No other complaints at this time PHYSICAL EXAMINATION: GENERAL: The patient is alert and oriented x1, not in any acute distress. Well developed, well nourished. HEENT: Pupils are round and equally reacting to light. EOMI. No scleral icterus. No conjunctival pallor. Patient with history of craniotomy of right skull, atraumatic. No pharyngeal erythema. No thyromegaly. CARDIOVASCULAR: S1 and S2 present. No murmurs, rubs, or gallops. PULMONARY: Chest is clear to auscultation, no wheezing or crackles. ABDOMEN: Soft, nontender, nondistended, normoactive bowel sounds. No palpable organomegaly. MUSCULOSKELETAL: No joint swelling or deformity. EXTREMITIES: No cyanosis, clubbing, or pedal edema. NEUROLOGICAL: Gross neurological examination did not reveal any focal deficits. SKIN: No rashes. Assessment and plan # Syncope # Hypovolemia # Elevated CK Continue IV normal saline 75 mL/h Monitor BMP Orthostatics, unremarkable - PT/OT consult pending #Complicated Urinary tract infection - Patient has suprapubic tenderness and bacteriuria UA reveals large leukocyte esterase, WBC, no squamous epithelial cells Urine culture pending Continue Rocephin, day 2 Monitor CBC IV normal saline, as above #On Anticoagulation, unclear indication - needs to be further investigated considering pt is high risk for fall given hemicraniotomy and hx of hemorrhagic stroke - can continue while in house given supervision by care staff during ambulation - falls precautions Chronic Medical Conditions History of Hemorrhagic CVA s/p hemicraniotomy, metal plate placement s/p removal Dementia Hyperlipidemia Hypertension Hypothyroidism -Continue home meds Monitor vital signs Labs and medication were reviewed.. Continue with symptomatic treatment. Resume home medication. Monitor labs and vitals. DVT and GI prophylaxis. Further recommendations as per clinical course of the patient Dictation was produced using [employer] dictation software. please excuse any grammatical, word or spelling errors. I saw and evaluated the patient during the butts and critical portions of this encounter, and discussed the case in detail with the resident author of this note, I agree with the Assessment and Plan, and my changes, if any, are highlighted in blue. Objective - Vital Signs Vital signs: Vital Signs Temp 97.6 F 03/24/24 13:55 Pulse 67 03/24/24 13:55 Resp 18 03/24/24 13:55 BP 117/62 03/24/24 13:55 Pulse Ox 96 03/24/24 13:55 FiO2 Intake & Output 03/23/24 03/24/24 03/24/24 18:59 06:59 18:59 Intake Total 1180 Output Total 1200 Balance -20 Weight 77.111 kg 77.111 kg Intake: Intake, IV Titration 900 Amount Sodium Chloride 0.9% 1, 900 000 ml @ 75 mls/hr IV . [id number] BENITO Rx#:[id number] Oral 280 Output: Urine 1200 Other: Voiding Method External Catheter External Catheter - Labs CBC & Chem 7: 03/24/24 05:09 03/24/24 05:09 Labs: Abnormal Lab Results - Last 24 Hours (Table) 03/24/24 03/24/24 Range/Units 05:09 05:09 WBC 12.40 H (4.50-10.00) X 10*3/uL RBC 3.92 L (4.40-5.60) X 10*6/uL Hgb 11.8 L (13.0-17.0) g/dL Hct 38.1 L (39.6-50.0) % MCV 97.2 H (80.0-97.0) FL MCHC 31.0 L (32.0-37.0) g/dL Plt Count 125 L (140-440) X 10*3/uL Neutrophils # 10.42 H (1.80-7.70) X 10*3/uL Lymphocytes # 0.74 L (0.90-5.00) X 10*3/uL Monocytes # 1.03 H (0.20-1.00) X 10*3/uL Carbon Dioxide 20.0 L (21.6-31.8) mmol/L Anion Gap 14.00 H (4.00-12.00) mmol/L Glucose 63 L (70-110) mg/dL Calcium 8.2 L (8.7-10.3) mg/dL Creatine Kinase 1592 A* (35-257) U/L Microbiology - Last 24 Hours (Table) 03/23/24 05:55 Urine Culture - Preliminary Urine,Voided
[2024-03-25 09:19] LABS: HCT 38.8 % (39.6-50.0); HGB 12.2 g/dL (13.0-17.0); MCH 30.1 pg (27.0-32.0); MCHC 31.4 g/dL (32.0-37.0); MCV 95.8 FL (80.0-97.0); Mean Platelet Volume 11.2 FL (9.5-12.2); NRBC Per 100 WBC 0 X 10*3/uL (0.00-0.01); Platelet Count 132 X 10*3/uL (140-440); RBC 4.05 X 10*6/uL (4.40-5.60); RDW 14.2 % (11.5-14.5); WBC 10.29 X 10*3/uL (4.50-10.00)
[2024-03-25 09:20] LABS: Basophils # (A) 0.03 X 10*3/uL (0.00-0.10); Basophils % (A) 0.3 %; Eosinophils # (A) 0.15 X 10*3/uL (0.04-0.35); Eosinophils % (A) 1.5 %; Lymphocytes # (A) 0.82 X 10*3/uL (0.90-5.00); Monocytes # (A) 1.12 X 10*3/uL (0.20-1.00); Monocytes % (A) 10.9 %; Neutrophils # (A) 8.14 X 10*3/uL (1.80-7.70)
[2024-03-25 09:29] LABS: Blood Urea Nitrogen 15.6 mg/dL (9.0-27.0); Calcium 8.1 mg/dL (8.7-10.3); Carbon Dioxide 22.4 mmol/L (21.6-31.8); Chloride 108 mmol/L (96-109); Glucose 90 mg/dL (70-110); Potassium 4.2 mmol/L (3.5-5.5); Sodium 140 mmol/L (135-145)
--- NOTE | 2024-03-25 17:23 | P.PN ---
Progress Note - Text Progress Note Date: 03/25/24 Rodriguez Tovar 84-year-old male with history of stroke, and dementia presents with syncope. Patient was unable to provide his own history due to dementia. Family states that over last 2 days patient's family reports 2 known falls. During these episodes patient was trying to move from walker and lost balance and fell to the ground hitting the back of his head. Last incident occurred last night when patient fell to his knees. Patient has no known history of seizures, and per family did not display jerking-like symptoms or incontinence. He has no known history of arrhythmia. Patient does state that he has continuous knee pain, no other complaints at this time. Initial lab work done in the ER showed WBC 11.3, hemoglobin 11.9, platelets 139, INR 1.2, sodium 138, potassium 4.1, chloride 111, carbon dioxide 22, BUN 18, creatinine 0.84, urine analysis with 1+ ketones small amount of blood, large leukocyte Estrace, urine WBC with no squamous epithelial cells. EKG done in the ER showed heart rate of 68, no ST segment elevation or depression seen, no T-wave inversions seen. CT head done showed no acute intracranial process CTA head and neck done showed no significant stenosis, aneurysm or thrombus in the intracranial circulation Progress note03/24/2024no events overnight, patient remains afebrile, continues to make urine. No other complaints at this time March 25, 2024: Up in a recliner. With total assist and eating fair. By physical therapy. Full assist. Recommending rehab. renal social worker working on the same. Patient has clinical features of Parkinson's. Including facies, tremor. Rigidity. Will start the patient on Sinemet 25/100 3 times daily. S poke to patient's son over the phone. He did confirm the order. Time patient had a more of a shuffling gait. Speech has become more monotone. Decreased expressions. He is also be rigid and having tremors. He also mentioned that patient put on blood thinners many many years ago because of strokes. I did discuss having the risk of falls especially given to recently patient barely able to get up without assist. He agrees to discontinue the blood thinners. He is also patient's POA./Guardian Active Medications Acetaminophen (Acetaminophen Tab 325 Mg Tab) 650 mg PO Q6HR PRN PRN Reason: Mild Pain or Fever > 100.5 Last Admin: 03/25/24 10:31 Dose: 650 mg Apixaban (Apixaban 5 Mg Tab) 5 mg PO BID [facility]; Protocol Last Admin: 03/25/24 08:29 Dose: 5 mg Atorvastatin Calcium (Atorvastatin 20 Mg Tab) 20 mg PO HS [facility] Last Admin: 03/24/24 21:27 Dose: 20 mg Bisacodyl (Bisacodyl 5 Mg Tablet.Dr) 5 mg PO DAILY PRN PRN Reason: Constipation Cyanocobalamin (Cyanocobalamin 500 Mcg Tab) 1,000 mcg PO DAILY [facility] Last Admin: 03/25/24 08:29 Dose: 1,000 mcg Docusate Sodium (Docusate 100 Mg Cap) 100 mg PO BID [facility] Last Admin: 03/25/24 08:29 Dose: 100 mg Donepezil HCl (Donepezil 10 Mg Tab) 10 mg PO HS [facility] Last Admin: 03/24/24 21:27 Dose: 10 mg Famotidine (Famotidine 20 Mg Tab) 20 mg PO QAM [facility] Last Admin: 03/25/24 08:29 Dose: 20 mg Ceftriaxone Sodium 1 gm/ (Sodium Chloride) 50 mls @ 100 mls/hr IVPB Q24HR [facility]; Protocol Last Admin: 03/25/24 08:29 Dose: 100 mls/hr Levothyroxine Sodium (Levothyroxine 25 Mcg Tab) 25 mcg PO QAM@0630 [facility] Last Admin: 03/25/24 04:42 Dose: 25 mcg Metoprolol Succinate (Metoprolol Succinate (Er) 25 Mg Tab.Er.24h) 25 mg PO DAILY [facility] Last Admin: 03/25/24 08:29 Dose: 25 mg Naloxone HCl (Naloxone 0.4 Mg/Ml 1 Ml Vial) 0.2 mg IV Q2M PRN PRN Reason: Opioid Reversal Pantoprazole Sodium (Pantoprazole 40 Mg/10 Ml Vial) 40 mg IV DAILY [facility] Last Admin: 03/25/24 08:29 Dose: 40 mg Quetiapine Fumarate (Quetiapine 50 Mg Tab) 50 mg PO HS [facility] Last Admin: 03/24/24 21:26 Dose: 50 mg Sertraline HCl (Sertraline 100 Mg Tab) 100 mg PO DAILY [facility] Last Admin: 03/25/24 08:29 Dose: 100 mg On examination: VITAL SIGNS: [97.5, 62, 22, 133 x 76, 92% on 2 L] GENERAL APPEARANCE: Up in a recliner. Tired. Expressionless facies HEENT: Normal external appearance of nose and ear. Oral cavity normal EYES: Pupils equal. Conjunctiva normal. NECK: JVD not raised. Mass not palpable. RESPIRATORY: Respiratory effort normal. Lungs clear to auscultation. CARDIOVASCULAR: First and second sounds normal. No edema. ABDOMEN: Soft. Liver and spleen not palpable. No tenderness. No mass palpable. PSYCHIATRY: Only able to answer simple questions. NEUROLOGY: Monotone voice. Words are stretched out. Rigidity. Mild tremor. Assessment and plan: -Falls, syncope likely due to autonomic dysfunction underlying Parkinson disease PT OT. -Idiopathic Parkinson disease, new diagnosis Start Sinemet 25 101 tablet 3 times daily Stop Aricept -Acute rhabdomyolysis secondary to fall Received IV fluids -Complicated UTI with cystitis IV ceftriaxone -Alzheimer's disease Aricept. Will discontinue the same because of anticholinergic effects and if will interfere with Sinemet. -Severe cognitive impairment likely from Parkinson disease, Alzheimer's -Hyperlipidemia Lipitor 20 mg nightly -Hypothyroid Synthroid 25 mcg a day -Depression Zoloft 100 mg a day -History of hemorrhagic CVA status post hemicraniotomy metal plate placement status post removal Patient is taking Eliquis was seen for many years as per the son. Does not being discontinued because of high risk of falls. Risk outweighs benefit now. -Chronic medical debility -DNR -Guardian: Zafar Hunt Advance care planning [March 25] Spoke at length to patient's son Gilbert. Ordered. Time patient is progressively getting worse specially in terms of activity. Patient's medical conditions discussed. He decided to proceed with a DNR. He is also patient's guardian. Patient going to rehab. Because of risks of fall out with the benefit also stop the Eliquis. Time spent over about 20 minutes
[2024-03-25] MEDS: CARBIDOPA-LEVODOPA 25-100 MG 1 EACH TAB PO SCH (17:27)
[2024-03-25] MEDS: PSYLLIUM HUSK 100% 6 GM PACKET PO SCH (17:27)
[2024-03-26 08:47] LABS: Basophils # (A) 0.04 X 10*3/uL (0.00-0.10); Basophils % (A) 0.4 %; Eosinophils % (A) 2.1 %; HCT 38.4 % (39.6-50.0); Lymphocytes # (A) 1.11 X 10*3/uL (0.90-5.00); Lymphocytes % (A) 11.7 %; MCH 29.2 pg (27.0-32.0); MCHC 31.3 g/dL (32.0-37.0); MCV 93.4 FL (80.0-97.0); Mean Platelet Volume 10.7 FL (9.5-12.2); Monocytes # (A) 1.06 X 10*3/uL (0.20-1.00); Monocytes % (A) 11.1 %; NRBC Per 100 WBC 0 X 10*3/uL (0.00-0.01); Neutrophils # (A) 7.06 X 10*3/uL (1.80-7.70); Neutrophils % (A) 74.3 %; Platelet Count 146 X 10*3/uL (140-440); RBC 4.11 X 10*6/uL (4.40-5.60); RDW 14.2 % (11.5-14.5); WBC 9.51 X 10*3/uL (4.50-10.00)
[2024-03-26 09:30] LABS: BUN/Creat Ratio 16.38 Ratio (12.00-20.00); Blood Urea Nitrogen 13.1 mg/dL (9.0-27.0); Calcium 7.8 mg/dL (8.7-10.3); Carbon Dioxide 22.3 mmol/L (21.6-31.8); Chloride 106 mmol/L (96-109); Glucose 100 mg/dL (70-110); Potassium 3.9 mmol/L (3.5-5.5); Sodium 139 mmol/L (135-145)
--- NOTE | 2024-03-26 13:44 | P.DS ---
Providers Date of admission: 03/23/24 07:20 Expected date of discharge: 03/26/24 Attending physician: Silvino Lin Primary care physician: Manan Newell MD Hospital Course: Rodriguez Tovar 84-year-old male with history of stroke, and dementia presents with syncope. Patient was unable to provide his own history due to dementia. Family states that over last 2 days patient's family reports 2 known falls. During these episodes patient was trying to move from walker and lost balance and fell to the ground hitting the back of his head. Last incident occurred last night when patient fell to his knees. Patient has no known history of seizures, and per family did not display jerking-like symptoms or incontinence. He has no known history of arrhythmia. Patient does state that he has continuous knee pain, no other complaints at this time. Initial lab work done in the ER showed WBC 11.3, hemoglobin 11.9, platelets 139, INR 1.2, sodium 138, potassium 4.1, chloride 111, carbon dioxide 22, BUN 18, creatinine 0.84, urine analysis with 1+ ketones small amount of blood, large leukocyte Estrace, urine WBC with no squamous epithelial cells. EKG done in the ER showed heart rate of 68, no ST segment elevation or depression seen, no T-wave inversions seen. CT head done showed no acute intracranial process CTA head and neck done showed no significant stenosis, aneurysm or thrombus in the intracranial circulation Progress note03/24/2024no events overnight, patient remains afebrile, continues to make urine. No other complaints at this time March 25, 2024: Up in a recliner. With total assist and eating fair. By physical therapy. Full assist. Recommending rehab. farrowing worker working on the same. Patient has clinical features of Parkinson's. Including facies, tremor. Rigidity. Will start the patient on Sinemet 25/100 3 times daily. Spoke to patient's son over the phone. He did confirm the order. Time patient had a more of a shuffling gait. Speech has become more monotone. Decreased expressions. He is also be rigid and having tremors. He also mentioned that patient put on blood thinners many many years ago because of strokes. I did discuss having the risk of falls especially given to recently patient barely able to get up without assist. He agrees to discontinue the blood thinners. He is also patient's POA./Guardian. March 26: Laying in bed. Started on Sinemet yesterday. Oral intake fair. Getting discharged to [facility] rehab today. Overall prognosis guarded given his multiple comorbidities and age. On examination: VITAL SIGNS: 98.2, 69, 18, 127/70, 96% on 2 L GENERAL APPEARANCE: Resting in bed. Eyes open-tired. Expressionless facies HEENT: Normal external appearance of nose and ear. Oral cavity normal EYES: Pupils equal. Conjunctiva normal. NECK: JVD not raised. Mass not palpable. RESPIRATORY: Respiratory effort normal. Lungs clear to auscultation. CARDIOVASCULAR: First and second sounds normal. No edema. ABDOMEN: Soft. Liver and spleen not palpable. No tenderness. No mass palpable. PSYCHIATRY: Only able to answer simple questions. NEUROLOGY: Monotone voice. Words are stretched out. Rigidity. Mild tremor. INVESTIGATIONS, reviewed in the clinical context: March 26: White count 9.5 hemoglobin 12 platelets 146 sodium 139 potassium 3.9 creatinine 0.8. CPK 6.7 yesterday Chest abdomen pelvis CT: Focal consolidation atelectasis posterior right lower lobe. Head cervical spine CT: No fracture Right femur tibia-fibula x-ray: No fracture EKG tracing personally reviewed by me-normal sinus rhythm. Poor R wave prog ression. Some ST/ST wave depression. Assessment and plan: -Falls, syncope likely due to autonomic dysfunction underlying Parkinson disease PT OT. -Idiopathic Parkinson disease, new diagnosis Started on Sinemet 25 101 tablet 3 times daily Stop Aricept -Acute rhabdomyolysis secondary to fall: Better Received IV fluids -Complicated UTI with cystitis IV ceftriaxone. Complete course with Ceftin -Alzheimer's disease Aricept. Will discontinue the same because of anticholinergic effects and if will interfere with Sinemet. -Severe cognitive impairment likely from Parkinson disease, Alzheimer's -Hyperlipidemia Lipitor 20 mg nightly -Hypothyroid Synthroid 25 mcg a day -Depression Zoloft 100 mg a day -History of hemorrhagic CVA status post hemicraniotomy metal plate placement status post removal Patient is taking Eliquis was seen for many years as per the son. Does not being discontinued because of high risk of falls. Risk outweighs benefit now. -Chronic medical debility -DNR -Guardian: Zafar Hunt Advance care planning [March 25] Spoke at length to patient's son Gilbert. Ordered. Time patient is progressively getting worse specially in terms of activity. Patient's medical conditions discussed. He decided to proceed with a DNR. He is also patient's guardian. Patient going to rehab. Because of risks of fall out with the benefit also stop the Eliquis. Disposition: [facility] Plan - Discharge Summary New Discharge Prescriptions: New bisacodyL [Dulcolax] 5 mg PO DAILY PRN tab PRN Reason: Constipation Acetaminophen Tab [Tylenol] 650 mg PO Q6HR PRN tab PRN Reason: Mild Pain Or Fever > 100.5 Cefuroxime [Ceftin] 250 mg PO BID 3 Days #6 tab Psyllium Husk 100% [Metamucil Packet] 6 gm PO DAILY packet Carbidopa-Levodopa 25-100 mg [Sinemet 25-100 mg] 1 each PO TID tab Continue QUEtiapine [SEROquel] 50 mg PO W/SUPPER Metoprolol Succinate (ER) [Toprol XL] 25 mg PO DAILY Famotidine [Pepcid] 20 mg PO QAM Rosuvastatin [Crestor] 10 mg PO HS Levothyroxine Sodium [Synthroid] 25 mcg PO QAM Sertraline [Zoloft] 100 mg PO DAILY Cyanocobalamin (Vitamin B-12) [Vitamin B-12] 1,000 mcg PO DAILY Discontinued Docusate [Colace] 100 mg PO BID Donepezil [Aricept] 10 mg PO HS #0 Apixaban [Eliquis] 5 mg PO BID Discharge Medication List QUEtiapine [SEROquel] 50 mg PO W/SUPPER 03/27/15 [History] Famotidine [Pepcid] 20 mg PO QAM 05/03/18 [History] Metoprolol Succinate (ER) [Toprol XL] 25 mg PO DAILY 05/03/18 [History] Cyanocobalamin (Vitamin B-12) [Vitamin B-12] 1,000 mcg PO DAILY 03/23/24 [History] Levothyroxine Sodium [Synthroid] 25 mcg PO QAM 03/23/24 [History] Rosuvastatin [Crestor] 10 mg PO HS 03/23/24 [History] Sertraline [Zoloft] 100 mg PO DAILY 03/23/24 [History] Acetaminophen Tab [Tylenol] 650 mg PO Q6HR PRN tab 03/26/24 [Rx] Carbidopa-Levodopa 25-100 mg [Sinemet 25-100 mg] 1 each PO TID tab 03/26/24 [Rx] Cefuroxime [Ceftin] 250 mg PO BID 3 Days #6 tab 03/26/24 [Rx] Psyllium Husk 100% [Metamucil Packet] 6 gm PO DAILY packet 03/26/24 [Rx] bisacodyL [Dulcolax] 5 mg PO DAILY PRN tab 03/26/24 [Rx] Follow up Appointment(s)/Referral(s): Manan Newell MD [Primary Care Provider] - 1-2 days
[2024-03-26 14:42] VITALS: BP 128/68; PULSE 63; RESP 17; TEMP 97.5
== END 2024-03-26 17:30 | DRG 690 ==
LOC: EC 00:11 → 5NMEDONC 07:20
PROVIDERS: ADMIT Hospitalist; ATTEND Hospitalist
DX: N30.90 Cystitis, unspecified without hematuria (principal); F02.83 Dementia in other diseases classified elsewhere, unspecified severity, with mood disturbance; G20.A1 Parkinson's disease without dyskinesia, without mention of fluctuations; T79.6XXA Traumatic ischemia of muscle, initial encounter; F32.A Depression, unspecified; E86.1 Hypovolemia; E03.9 Hypothyroidism, unspecified; M25.561 Pain in right knee; W01.0XXA Fall on same level from slipping, tripping and stumbling without subsequent striking against object, initial encounter; G30.9 Alzheimer's disease, unspecified; G90.9 Disorder of the autonomic nervous system, unspecified; E78.5 Hyperlipidemia, unspecified; I10 Essential (primary) hypertension; Z66 Do not resuscitate; Z28.310 Unvaccinated for COVID-19; Z91.81 History of falling; Z86.73 Personal history of transient ischemic attack (TIA), and cerebral infarction without residual deficits; Z79.899 Other long term (current) drug therapy; Z79.890 Hormone replacement therapy; Z79.01 Long term (current) use of anticoagulants
CPT/HCPCS: 36415; 70450; 71250; 72125; 74176; 80048; 80053; 80320; 81001; 82140; 82550; 83605; 84443; 84484; 85025; 85610; 85730; 87086; 87636; 93005; 94760; 96361; 96365; 96366; 96375; 99285